=== PATIENT | male | born 1995 | race Caucasian/White ===

== ENCOUNTER → 2020-01-25 14:09 | Outpatient (CLI) | payer BC, SELFPAY ==
--- NOTE | 2020-01-25 14:18 | XR_ITS ---
PROCEDURE: XR FOOT RT MIN 3V CLINICAL INDICATION: RT LEG TENDINITIS Pain and swelling right heel COMPARISON: No exams were available for comparison FINDINGS: No fracture or dislocation. No lytic or blastic change. There is normal mineralization. The joint spaces are well-preserved. No significant degenerative/arthritic changes. No erosive changes evident. Other findings:No calcaneal spur evident. There is a prominent posterior talar process IMPRESSION: No acute finding. Mild prominent posterior talar process Dictated by: Eligio Mccormick MD 01/25/2020 15:48 Electronically signed by Eligio Mccormick MD in [place] 01/25/2020 15:48
== END ==
PROVIDERS: PCP Family Medicine; Visit Provider Family Medicine
DX: M76.61 Achilles tendinitis, right leg (principal)
CPT/HCPCS: 73630

== ENCOUNTER 2020-05-04 13:36 | Emergency (ER) | payer BC, SELFPAY ==
[2020-05-04 13:37] VITALS: BP 120/90; PULSE 75; RESP 20; TEMP 37.1; O2SAT 98; BMI 31.3
--- NOTE | 2020-05-04 14:41 | HMH.EDUTC ---
[facility] [place] Dis[place] Clinical Impression: COVID-19 virus test result unknown Disposition: Home, Self-Care Condition on Discharge: Good Instructions: Preventing the Spread of Coronavirus Discharge Instructions Additional Instructions: self quarantine until test results are neg increase fluids tylenol or motrin as needed if symptoms worsen or do not improve return or be seen in ed Referrals: PCPKylie [Primary Care Provider] - Time of Disposition: 14:46 Medical Decision Making - Travon Inquiry Pt receiving controlled substance: No Vital Signs: 05/04/20 13:37 Temperature 98.7 F Temperature Source Oral Pulse Rate [Radial] 75 Respiratory Rate 20 Blood Pressure [Right Arm] 120/90 Blood Pressure Mean [Right Arm] 100 Blood Pressure Source [Right Arm] Automatic Cuff Blood Pressure Position [Right Arm] Sitting 02 Sat by Pulse Oximetry 98 Oxygen Delivery Method Room Air Orders (Tests/Meds): ORDERS Category Date Time Status Coronavirus 19 Swab (OUTPT) Routine Lab 05/04/20 13:43 Received [facility] [place] HPI - General Chief complaint: Ur[facility] Stated complaint: Sore throat,cough,wants to be tested COVID Time Seen by Provider: 05/04/20 14:41 Mode of Arrival: Ambulatory Source of Information: Patient Limitations: No Limitations Description of Symptoms (Recalled from Triage Doc. by RN): covid testing HEENT Symptoms (Recalled from RN notes): No Resp Symptoms (Recalled from RN notes): No Skin Symptoms (Recalled from RN notes): No MS Symptoms (Recalled from RN notes): No Functional Status (Recalled from RN notes): wnl - History of Present Illness Provider Complaint: 24 yr old male presents for covid testing. Pt states he is having clear nasal drainage, sore throat and loss of taste and smell since thurs - Related Data Allergies Allergy/AdvReac Type Severity Reaction Status Date / Time No Known Allergies Allergy Unverified 09/14/17 14:57 - Worker's Comp Is this a Worker's Comp case?: No [facility] History - Hepatitis A Screen Drug use history?: No High risk sexual behaviors?: No History of sexually transmitted infection?: No Currently employed?: No Childcare worker?: No Do you have indoor plumbing?: Yes Do you have electricity?: Yes Attestation statement:: This patient has been screened for Hepatitis A risk factors. I have reviewed the patient's past medical history: Yes - Social History Alcohol Intake: never Occupational Status: employed ROS Obtained: Yes Systems reviewed as appropriate & no additional complaints - Constitutional Constitutional: Reports system reviewed and no additional complaints, except as docu, Reports fatigue, Reports fever(s) - Eyes Eyes: Reports system reviewed and no additional complaints, except as docu, Denies eye pain - ENT Ears, Nose, Mouth, and Throat: Reports system reviewed and no additional complaints, except as docu, Reports nasal congestion, Reports sore throat - Cardiovascular Cardiovascular: Reports system reviewed and no additional complaints, except as docu, Denies chest pain at rest - Respiratory Respiratory: Yes system reviewed and no additional complaints, except as docu, No change in phlegm color - Gastrointestinal Gastrointestingal: Reports: system reviewed and no additional complaints, except as docu. Denies: nausea, vomiting - Genitourinary Male Genitourinary: Reports system reviewed and no additional complaints, except as docu - Musculoskeletal Musculoskeletal: Reports system reviewed and no additional complaints, except as docu, Denies joint swelling - Integumentary/Breasts Skin/Breast: Reports system reviewed and no additional complaints, except as docu, Denies rash - Neurologic Neurologic: Reports system reviewed and no additional complaints, except as docu, Denies dizziness - Endocrine Endocrine: Reports system reviewed and no additional complaints, except as docu, Denies fatigue - Hematologic/Lymphatic Henatologic/
[2020-05-04 15:23] VITALS: BP 120/90; PULSE 75; RESP 20; TEMP 37.1; O2SAT 98
--- NOTE | 2020-05-04 18:55 | PC.NURSE ---
Patient notified of positive COVID screen. Educated on self quarantine and note given for place of employment.
== END 2020-05-04 14:53 | disposition home or self-care (01) ==
PROVIDERS: Emergency Provider Nurse Practitioner Family
DX: Z20.828 Contact with and (suspected) exposure to other viral communicable diseases (principal); R50.9 Fever, unspecified; R05 Cough
CPT/HCPCS: 99201; U0003

== ENCOUNTER → 2020-05-20 17:20 | Outpatient (CLI) | payer BC, SELFPAY ==
[2020-05-22 13:58] LABS: Covid-19 Nasal PCR Sendout Lex Positive
== END ==
PROVIDERS: PCP Family Medicine; Visit Provider Nurse Practitioner Family
DX: Z20.828 Contact with and (suspected) exposure to other viral communicable diseases (principal); U07.1 COVID-19
CPT/HCPCS: U0004

== ENCOUNTER 2020-10-11 08:04 | Emergency (ER) | payer OTHER, SELFPAY ==
[2020-10-11 08:05] VITALS: BP 140/82; PULSE 91; O2SAT 94
[2020-10-11 08:06] VITALS: BP 136/91; PULSE 98; RESP 18; TEMP 37.1; O2SAT 98; BMI 34.8
--- NOTE | 2020-10-11 08:16 | ECG_ITS ---
APPROVED REPORT Exam: Resting ECG HR:96 bpm ECG Measurements Heart Rate 96 AXES DE 140 P 37 QRSd 94 QRS 78 QT 330 T 0 QTc 416 Conclusion Normal sinus rhythm Nonspecific T wave abnormality Abnormal ECG Electronically signed by : Jose Conrad, 10/11/2020 16:34:38
--- NOTE | 2020-10-11 08:22 | CT_ITS ---
PROCEDURE: CT CERVICAL SPINE WO CON CLINICAL INDICATION: fall Neck injury with pain, contusion/abrasion or hematoma, cervical sprain/strain the COMPARISON: No exams were available for comparison TECHNIQUE: Axial images obtained with sagittal and coronal reformats. All CT scans at the facility use one or more dose reduction, viz: automated exposure control, ma/kV adjustment per patient size (including targeted exams where dose is matched to indication, i.e. head), or iterative reconstruction technique. Axial spiral CT scanning performed of the cervical spine beginning at the base of the skull and continuing to the upper T-spine. 3-D multiplanar reconstruction with 3-D manipulation of volumetric data set in image rendering was completed by the radiologist and/or technologist with the supervision of the radiologist on independent workstation. FINDINGS: There is straightening of the cervical lordosis which nonspecific and may be due to patient positioning or muscle spasm. There is incomplete union of the posterior arch of C1 as a normal variant.. No fracture or dislocation. The disc spaces are well preserved. Scattered small nodes are present in the neck. Lung apices are clear. IMPRESSION: Straightening of cervical lordosis which may be due to patient positioning or muscle spasm otherwise negative with no evidence of acute fracture Incomplete fusion posterior arch of C1 as a normal variant Dictated by: Eligio Mccormick MD 10/11/2020 09:10 Eligio Mccormick MD in [place] 10/11/2020 09:10
--- NOTE | 2020-10-11 08:22 | XR_ITS ---
PROCEDURE: XR SACRUM COCCYX MIN 2V CLINICAL INDICATION: fall Posttraumatic pain COMPARISON: No exams were available for comparison FINDINGS: No fracture or dislocation. No lytic or blastic change. There is normal mineralization. The joint spaces are well-preserved. No significant degenerative/arthritic changes. No erosive changes evident. Other findings:None. IMPRESSION: No acute findings. Dictated by: Eligio Mccormick MD 10/11/2020 09:11 Eligio Mccormick MD in [place] 10/11/2020 09:11
--- NOTE | 2020-10-11 08:23 | PC.NURSE ---
notified rad of orders on pt, spoke with Kevin.
--- NOTE | 2020-10-11 08:30 | HMH.EDGENADL ---
ED Disposition Clinical Impression: Fall from height of greater than 3 feet, Electrocution Disposition: Home, Self-Care Condition on Discharge: Good Referrals: LeoViral [Primary Care Provider] - 3 days Time of Disposition: 10:11 - Critical Care Critical Care Time: No Attestation: On 10/11/20, the high probability of a clinically significant, sudden or life threatening deterioration of the following system(s) required my full and direct attention, intervention and personal management. The time I documented below is in addition to time spent performing reported procedures but includes the following listed in this critical care notation. Medical Decision Making - Travon Inquiry Pt receiving controlled substance: No Travon was queried for this patient: No Vital Signs: 10/11/20 08:05 10/11/20 08:06 10/11/20 09:01 Temperature 98.8 F Temperature Source Oral Pulse Rate [Apical] 91 H 98 H 93 H Respiratory Rate 18 24 Blood Pressure [Right Arm] 140/82 136/91 H 161/83 H Blood Pressure Mean [Right Arm] 101 106 109 Blood Pressure Source [Right Arm] Automatic Cuff Automatic Cuff Automatic Cuff Blood Pressure Position [Right Arm] Sitting Sitting Sitting 02 Sat by Pulse Oximetry 94 L 98 97 Oxygen Delivery Method Room Air Room Air Room Air 10/11/20 09:30 10/11/20 10:00 Temperature Temperature Source Pulse Rate [Apical] 88 95 H Respiratory Rate 24 Blood Pressure [Right Arm] 164/93 H 148/75 H Blood Pressure Mean [Right Arm] 116 99 Blood Pressure Source [Right Arm] Automatic Cuff Automatic Cuff Blood Pressure Position [Right Arm] Sitting Sitting 02 Sat by Pulse Oximetry 95 95 Oxygen Delivery Method Room Air Room Air - Lab Data Lab Results 10/11/20 08:59: WBC 8.9, RBC 5.49, Hgb 16.4, Hct 48.8, MCV 88.9, MCH 29.8, MCHC 33.5, RDW 13.3, Plt Count 274, MPV 9.0, Neut % (Auto) 67.6, Lymph % (Auto) 26.3, Burke % (Auto) 4.1, Eos % (Auto) 1.2, Baso % (Auto) 0.7, Neut # (Auto) 6.0, Lymph # (Auto) 2.3, Burke # (Auto) 0.4, Eos # (Auto) 0.1, Baso # (Auto) 0.1 10/11/20 08:59: Sodium 138, Potassium 4.1, Chloride 105, Carbon Dioxide 25, Anion Gap 12.1, BUN 13, Creatinine 0.90, Estimated Creat Clear 201, Estimated GFR 103, Est GFR ( Amer) 124, Glucose 118 H, Calcium 9.7, Total Bilirubin 0.5, AST 48, ALT 91 H, Alkaline Phosphatase 78, Lactate Dehydrogenase 201 L, Troponin I < 0.01, Total Protein 7.5, Albumin 4.6, Globulin 2.9, Albumin/Globulin Ratio 1.6 Result diagrams: 10/11/20 08:59 10/11/20 08:59 - ECG Data Tracing #1 Normal sinus rhythm, 90 bpm, no ST elevation or depression, no ectopy, normal intervals. Medical Decision Narrative: 25yo M evaluated after electrical shock and fall. X-ray of the sacrum and CT of the neck are completed. Both are read by radiology as negative. CBC, CMP, troponin, CPK are all unremarkable. Patient's EKG is normal. Patient has no complaints at this time and reports normal sensation and strength. Denies chest pain. Patient states he would like to return to work. Evaluation is negative and his Worker's Compensation forms have been completed. General Adult HPI - General Chief complaint: PAIN Stated complaint: shocked and fell off ladder WC 3m Time Seen by Provider: 10/11/20 08:30 Mode of Arrival: Ambulatory Limitations: No Limitations Description of Symptoms (Recalled from ER Triage Doc. by RN): Pt presents r/t electrical shock from an emergency light while at work, pt reports he was shocked in hand, pt states he standing on a ladder approx 5 feet in the air, pt reports he fell from the ladder onto his back when he fell. Pt c/o pain in coccyx area r/t fall, pt states also having pain when turning his head side to side in neck area. Pt denies chest pain, denies SOA. Pt has 2 areas on temo hands, white blister like areas that area dry like r/t electrical shock. - History of Present Illness HPI narrative: 25yo M without signet past medical history is evaluated after an inju
--- NOTE | 2020-10-11 08:34 | PC.NURSE ---
Pt to rad.
--- NOTE | 2020-10-11 08:46 | PC.NURSE ---
pt returning from rad.
[2020-10-11 09:01] VITALS: BP 161/83; PULSE 93; RESP 24; O2SAT 97
[2020-10-11 09:19] LABS: Basophils # 0.1 K/mm3 (0-0.2); Basophils % 0.7 % (0.1-2.0); Eosinophils # 0.1 K/mm3 (0.0-0.4); Eosinophils % 1.2 % (0.1-12.0); Hematocrit 48.8 % (42.0-52.0); Hemoglobin 16.4 g/dL (14.1-18.0); Lymphocytes # 2.3 K/mm3 (0.7-4.5); Lymphocytes % 26.3 % (10-50); Mean Corpuscular HGB Conc 33.5 g/dL (31.8-35.4); Mean Corpuscular Hemoglobin 29.8 pg (27.0-31.2); Mean Corpuscular Volume 88.9 fl (80-94); Monocytes # 0.4 K/mm3 (0.1-1.0); Monocytes % 4.1 % (1.7-9.3); Neutrophils % 67.6 % (37.0-80.0); Platelet Count 274 K/mm3 (142-424); Red Blood Count 5.49 M/mm3 (4.60-6.20); Red Cell Distribution Width 13.3 % (11.5-17.5); White Blood Count 8.9 K/mm3 (4.8-10.8)
[2020-10-11 09:24] LABS: Alanine Aminotransferase 91 U/L (12-78); Albumin Level 4.6 g/dl (3.5-5.0); Albumin/Globulin Ratio 1.6 (1.1-1.8); Alkaline Phosphatase 78 U/L (38-126); Anion Gap 12.1 mEq/L (5-15); Aspartate Amino Transferase 48 U/L (17-59); Bilirubin,Total 0.5 mg/dl (0.2-1.3); Blood Urea Nitrogen 13 mg/dl (9-20); Calcium 9.7 mg/dl (8.4-10.2); Carbon Dioxide 25 mmol/L (22.0-30.0); Chloride 105 mmol/L (98-107); Creatinine Clearance Estimated 201 mL/min (50-200); Estimated Glomerular Filt Rate 103 ml/min (>60); GFR (African American) 124 ML/MIN (>60); Globulin 2.9 g/dL (1.3-3.2); Glucose 118 mg/dl (74-100); Lactate Dehydrogenase 201 U/L (313-618); Potassium 4.1 mmoL/L (3.5-5.1); Sodium 138 mmol/L (136-145); Total Protein,Serum 7.5 g/dl (6.3-8.2)
[2020-10-11 09:30] VITALS: BP 164/93; PULSE 88; RESP 24; O2SAT 95
[2020-10-11 09:42] LABS: Troponin I < 0.01 ng/ml (0.00-0.034)
[2020-10-11 10:00] VITALS: BP 148/75; PULSE 95; O2SAT 95
[2020-10-11 10:29] VITALS: BP 148/75; PULSE 86; RESP 20; TEMP 37.1; O2SAT 96
== END 2020-10-11 10:30 | disposition home or self-care (01) ==
PROVIDERS: Emergency Provider Family Medicine; PCP Family Medicine
DX: T23.252A Burn of second degree of left palm, initial encounter (principal); T23.251A Burn of second degree of right palm, initial encounter; T75.4XXA Electrocution, initial encounter; W11.XXXA Fall on and from ladder, initial encounter; W86.1XXA Exposure to industrial wiring, appliances and electrical machinery, initial encounter; Y92.63 Factory as the place of occurrence of the external cause; Y99.0 Civilian activity done for income or pay
CPT/HCPCS: 72125; 72220; 80053; 83615; 84484; 85025; 93005; 99283

== ENCOUNTER 2021-10-13 09:51 | Emergency (ER) | payer BC, SELFPAY ==
[2021-10-13 09:55] VITALS: BP 129/88; PULSE 86; RESP 18; TEMP 36.9; O2SAT 98; BMI 38.7
--- NOTE | 2021-10-13 10:10 | HMH.EDUTC ---
[facility] [place] Clinical Impression: URI (upper respiratory infection) Qualifiers: URI type: unspecified URI Qualified Code(s): J06.9 - Acute upper respiratory infection, unspecified Disposition: Home, Self-Care Condition on Discharge: Good Instructions: Sore Throat, Nausea and Vomiting-Adult, Diarrhea Additional Instructions: *Monitor Temp, Over the counter Motrin or Tylenol as directed/as needed Tylenol every 4 hours and Motrin every 6 hours (as long as your family doctor has told you that you can take it) for fever or pain. and straight to ER if unable to lower temp less than 101.0 after medication given *Warm salt water gargles may help to soothe the throat *Throat Lozenges *Warm fluids like tea with honey may help to soothe the throat *Sleep elevated *Humidifier/Vaporizer Your throat swab was sent for culture. Those results are typically sent to your primary care. Be sure to follow up in 2-3 days with your family doctor/primary care physician if no improvement so they can review those result and treat if necessary. If you don?t have a primary care doctor, I recommend you get one but in the mean time, you will have to return to a walk in clinic Follow up IMMEDIATELY for new or worsening symptoms or no Noticeable improvement over the next 48-72 hours. 911 for difficulty breathing or swallowing Prescriptions: Amoxicillin [Amoxicillin 500mg Cap] 500 mg PO BID 10 Days #20 cap Transmission Status: Pending to [facility] Ondansetron [Zofran 4mg ODT] 4 mg PO TIDP PRN #6 tab PRN Reason: Nausea Transmission Status: Pending to [facility] Referrals: Walod Bailey [Primary Care Provider] - As needed Time of Disposition: 10:37 Medical Decision Making - Travon Inquiry Pt receiving controlled substance: No Travon was queried for this patient: No Vital Signs: 10/13/21 09:55 Temperature 98.4 F Temperature Source Oral Pulse Rate [Right Brachial] 86 Respiratory Rate 18 Blood Pressure [Right Arm] 129/88 Blood Pressure Mean [Right Arm] 101 Blood Pressure Source [Right Arm] Automatic Cuff Blood Pressure Position [Right Arm] Sitting 02 Sat by Pulse Oximetry 98 Oxygen Delivery Method Room Air - Lab Data Lab results reviewed: Yes: I reviewed the patient's lab results. Lab Results 10/13/21 10:00: Group A Strep Rapid Negative Orders (Tests/Meds): ORDERS Category Date Time Status Strep Screen Confirmation Stat Micro 10/13/21 10:00 Received Medical Decision Narrative: although rapid strep test is negative patient appears like see with Strep throat [facility] [place] - General Stated complaint: possible strep Time Seen by Provider: 10/13/21 10:10 Mode of Arrival: Ambulatory Source of Information: Patient Limitations: No Limitations Description of Symptoms (Recalled from Triage Doc. by RN): PATIENT C/O SORE THROAT, RECENTLY EXPOSED TO STREP HEENT Symptoms (Recalled from RN notes): Yes Resp Symptoms (Recalled from RN notes): No Skin Symptoms (Recalled from RN notes): No MS Symptoms (Recalled from RN notes): No Functional Status (Recalled from RN notes): WNL - History of Present Illness Provider Complaint: Patient state that he his recently had strep throat State that since then he started having sore throat, N/V like he gets when he has strep throat State that today he was still feeling bad so he came in to get checked out - Related Data Home Medications Medication Instructions Recorded Confirmed Venlafaxine HCl [Effexor XR 75mg 75 mg PO DAILY 10/13/21 10/13/21 capsule] buPROPion HCL [Wellbutrin SR 75mg 75 mg PO BID 10/13/21 10/13/21 Tablet] Previous Rx's Medication Instructions Recorded Amoxicillin [Amoxicillin 500mg 500 mg PO BID 10 Days #20 cap 10/13/21 Cap] Ondansetron [Zofran 4mg ODT] 4 mg PO TIDP PRN #6 tab 10/13/21 Allergies Allergy/AdvReac Type Severity Reaction Status Date / Time No Known Allergies Allergy Verifie
[2021-10-13 10:26] LABS: Strep Scrn Group A (Rapid) Negative (Negative)
[2021-10-13 10:39] VITALS: BP 129/88; PULSE 86; RESP 18; TEMP 36.9; O2SAT 98
== END 2021-10-13 10:45 | disposition home or self-care (01) ==
PROVIDERS: Emergency Provider Nurse Practitioner; PCP Family Medicine
DX: J06.9 Acute upper respiratory infection, unspecified (principal)
CPT/HCPCS: 87430; 99202; G0463

== ENCOUNTER 2022-04-15 08:27 | Emergency (ER) | payer BC, SELFPAY ==
--- NOTE | 2022-04-15 08:30 | PC.NURSE ---
pt given paperwork to fill out
--- NOTE | 2022-04-15 08:33 | PC.NURSE ---
pt brought back to room 3
[2022-04-15 08:44] LABS: UTC Strep Screen (Rapid) Positive (Negative)
--- NOTE | 2022-04-15 08:44 | HMH.EDUTC ---
[facility] [place] Disposition Clinical Impression: Strep throat Disposition: Home, Self-Care Condition on Discharge: Good Instructions: Strep Throat, DI for Strep Throat Additional Instructions: Drink plenty of fluids. Take tylenol or ibuprofen for pain or fever. Take the medications as directed. Follow up with your regular doctor. GO TO THE ER FOR ANY WORSENING SYMPTOMS Throw your tooth brush away and get a new one. Prescriptions: Ondansetron [Zofran 4mg ODT] 4 mg PO Q8HP PRN #12 tab PRN Reason: Nausea Transmission Status: Received by [facility] Amoxicillin/Potassium Clav [Amox-Clav 875-125 mg Tablet] 1 tab PO BID #20 tab Transmission Status: Received by [facility] methylPREDNISolone [Medrol] 4 mg PO DIRECTED 6 Days #21 packet [facility]: [facility] Referrals: Bailey,Viral [Primary Care Provider] - Forms: Work/School Release Time of Disposition: 08:59 Medical Decision Making - Medical Records Medical records reviewed: No: I reviewed the patient's medical records. - Travon Inquiry Pt receiving controlled substance: No Vital Signs: 04/15/22 08:45 Temperature 99.1 F Temperature Source Oral Pulse Rate [Left Radial] 113 H Respiratory Rate 18 Blood Pressure [Right Arm] 155/92 H Blood Pressure Mean [Right Arm] 113 02 Sat by Pulse Oximetry 95 - Lab Data Lab results reviewed: Yes: I reviewed the patient's lab results. Lab Results 04/15/22 08:37: Strep Scn Rapid Clinic Positive A [facility] [place] HPI - General Stated complaint: cough,sore throat, fever Time Seen by Provider: 04/15/22 08:44 - History of Present Illness Provider Complaint: He states that for the past 3 days he has had a sore throat, chills, low grade fever and left ear pain. - Related Data Home Medications Medication Instructions Recorded Confirmed Venlafaxine HCl [Effexor XR 75mg 75 mg PO DAILY 10/13/21 10/13/21 capsule] buPROPion HCL [Wellbutrin SR 75mg 75 mg PO BID 10/13/21 10/13/21 Tablet] Previous Rx's Medication Instructions Recorded Amoxicillin [Amoxicillin 500mg 500 mg PO BID 10 Days #20 cap 10/13/21 Cap] Ondansetron [Zofran 4mg ODT] 4 mg PO TIDP PRN #6 tab 10/13/21 Amoxicillin/Potassium Clav 1 tab PO BID #20 tab 04/15/22 [Amox-Clav 875-125 mg Tablet] Ondansetron [Zofran 4mg ODT] 4 mg PO Q8HP PRN #12 tab 04/15/22 methylPREDNISolone [Medrol] 4 mg PO DIRECTED 6 Days #21 04/15/22 packet Allergies Allergy/AdvReac Type Severity Reaction Status Date / Time No Known Allergies Allergy Verified 10/13/21 10:07 [facility] History - Hepatitis A Screen Attestation statement:: This patient has been screened for Hepatitis A risk factors. I have reviewed the patient's past medical history: Yes - Social History Alcohol Intake: never Alcohol Intake Frequency:: holidays/special occasions only Occupational Status: other ROS Obtained: Yes All systems reviewed & no additional complaints - Constitutional Constitutional: Reports as per HPI - ENT Ears, Nose, Mouth, and Throat: Denies dizziness, Denies otalgia, Reports sore throat - Cardiovascular Cardiovascular: Denies chest pain - Respiratory Respiratory: Denies chest congestion, Reports cough, Denies dyspnea, Denies stridor, Denies wheezing - Gastrointestinal Gastrointestingal: Reports: nausea. Denies: abdominal pain, cramping, diarrhea, vomiting Physical Exam - General General appearance: alert, in no apparent distress - Head Head exam: atraumatic, normocephalic, normal inspection - Eye Eye exam: Present: normal appearance, PERRL, EOMI - ENT ENT exam: Present: mucous membranes moist, normal external ear exam - Expanded ENT Exam TM/Canal exam: Bilateral TM: erythema, bulging Mouth exam: Present: normal external inspection, tongue normal. Absent: drooling Teeth exam: Present: normal inspection Throat exam: Present: tonsillar eryt
[2022-04-15 08:45] VITALS: BP 155/92; PULSE 113; RESP 18; TEMP 37.3; O2SAT 95; BMI 37.2
--- NOTE | 2022-04-15 08:53 | PC.NURSE ---
flexible nanny at the bedside
[2022-04-15 09:26] VITALS: BP 150/89; PULSE 102; RESP 18; TEMP 37.3; O2SAT 96
== END 2022-04-15 09:27 | disposition home or self-care (01) ==
PROVIDERS: Emergency Provider Nurse Practitioner Family; PCP Family Medicine
DX: J02.0 Streptococcal pharyngitis (principal)
CPT/HCPCS: 87880; 99212; G0463